=== PATIENT | male | born 2000 | race Caucasian/White ===

== ENCOUNTER 2020-05-02 15:00 | Emergency (ER) | payer OTHER, SELFPAY ==
--- NOTE | ~2020-05-02 | XR_ITS ---
EXAMINATION: XR CHEST CLINICAL INFORMATION: Abdominal pain COMPARISON: None TECHNIQUE: Frontal view of the chest was obtained. FINDINGS: Cardiac silhouette is normal in size. The lungs are well aerated. There is no lobar consolidation. No pleural effusion or pneumothorax. XR/XR chest 1V IMPRESSION: No acute pulmonary pathology.
[2020-05-02 15:04] VITALS: BP 143/95; PULSE 93; RESP 16; TEMP 36.5; O2SAT 99; BMI 27.1
--- NOTE | 2020-05-02 18:44 | ED_ITS ---
HPI - Abdominal Pain General Chief Complaint: Abdominal Pain Stated Complaint: ABD PAIN Time Seen by Provider: 05/02/20 18:34 Source: patient Mode of arrival: ambulatory History of Present Illness HPI narrative: 20-year-old male with no significant past medical history presenting to the emergency department nausea, vomiting, and abdominal pain, since yesterday. He states he has had decreased p.o. intake and feels dehydrated. Took Pepto-Bismol last night. He had 1 episode of black stool this morning. He denies hematemesis. He states the pain is diffuse across his abdomen, not focal to one spot. He denies fevers, chest pain, shortness of breath, urinary symptoms. No prior abdominal surgeries. He denies marijuana use. He was able to tolerate 4 crackers while waiting in the waiting room. He took one pill of his mother's nausea medication which helped with the nausea. Similar symptoms occurred last summer . MD elicited complaint: abdominal pain Related Data Previous Rx's Medication Instructions Recorded ondansetron 4 mg PO Q8H PRN 3 Days #9 tab 05/02/20 Allergies Allergy/AdvReac Type Severity Reaction Status Date / Time cefprozil [From Cefzil] Allergy Unknown Unknown Verified 05/02/20 18:42 Review of Systems Constitutional: Denies fever(s) and Denies headache(s) Eyes: Reports no additional eye complaints Denies headache(s) and Denies sore throat Cardiovascular: Denies chest pain and Denies dyspnea Respiratory: Denies cough and Denies dyspnea Gastrointestinal: Reports abdominal pain, Denies diarrhea, Reports nausea and Reports vomiting Comments: denies dysuria or hematuria Musculoskeletal: Reports no additional musculoskeletal complaints Denies headache(s) Hematologic/Lymphatic: Denies easy bleeding Physical Exam Vital Signs: Vital Signs: Last Vital Signs Temp 98.5 F 05/02/20 20:33 Pulse 77 05/02/20 20:33 Resp 18 05/02/20 20:33 BP 139/85 05/02/20 20:33 Pulse Ox 99 05/02/20 20:33 Body Mass Index 27.1 Const: Other: laying supine in the stretcher, anxious Orientation/consciousness: patient oriented x3 HENMT: Head: Yes normocephalic Eyes: Pupils: Equal, round and reactive pupils present Neck: Neck: Yes full ROM, Yes no meningeal signs, Yes trachea midline and Yes supple Resp: Effort & Inspection: normal respiratory effort and able to speak in complete sentences Auscultation: clear to auscultation bilaterally Cardio: Rate: regular rate Rhythm: regular rhythm GI: Inspection: No distended Palpation (GI): Soft to palpation, Tenderness to palpation present (GI) (mild diffuse ), no guarding and not rigid : Other: deferred no complaints Skin: Other: warm, dry Neuro: General: patient oriented x3 and no meningeal signs Cranial nerves: Yes Equal, round and reactive pupils present Extrem: General: Yes full ROM Course Reevaluation(s) Reevaluation #1: Pt. states his symptoms have improved. He has no appetite to PO trial. He ate 4 crackers while waiting in the waiting room and has been able to drink water here. Results were discussed. If pt. is able to PO challenege will discharge home. Time: 20:11 Reevaluation #2: Attending evaluated the pt. Agrees to defer abdominal CT at this time. Labs unremarkable, lipase is WNL, LFTs are WNL, COVID negative. Time: 20:32 MDM - Abdominal Pain MDM Narrative Medical decision making narrative: A 20-year-old male presenting to the emergency department with abdominal pain, nausea, vomiting, 1 episode of black stool today Final stable, nontoxic appearing, hemodynamically stable We will plan for basic labs to assess for leukocytosis, anemia, renal dysfunction. We will check for electrolyte abnormalities given his vomiting. We will check chest x-ray to rule out free air. Will check LFTs to assess for acute hepatobiliary disease, lipase for acute pancreatitis. I gave him a GI cocktail and IV fluids. Low concern for acute cholecystitis given no focal right upper quadrant tenderness. Low concern for acute appendicitis given no focal right lower quadrant tenderness. Obstruction is less likely given he is no longer vomiting, had a BM this morning, no prior surgeries. GI bleed is less likely given 1 episode of black stools was most likely due to his Pepto-Bismol use., no associated hematemesis. Gastroenteritis is likely given he has been afebrile, not having diarrhea. Renal stone is less likely given pain is not colicky. Hyperemesis cannabis syndrome less likely given he denies use of marijuana. Case discussed with attending Lab Data Result diagrams: 05/02/20 19:25 05/02/20 19:25 Labs: Lab Results 05/02/20 05/02/20 05/02/20 Range/Units 19:25 19:25 19:25 WBC 7.3 (4.8-10.8) X10*3/uL RBC 5.96 H (4.60-5.80) X10*6/uL Hgb 16.3 (14.0-18.0) g/dl Hct 48.8 (42-52) % MCV 81.9 (80-98) fL MCH 27.3 (27.0-33.0) pg MCHC 33.4 (31.0-36.0) g/dl RDW 12.8 (11.0-16.0) % Plt Count 168 (160-400) X10*3/uL MPV 10.8 (9.4-12.4) fL Immature Gran % (Auto) 0.3 (0.0-0.4) % Neut % (Auto) 68.9 (45-73) % Lymph % (Auto) 19.5 L (20-40) % [place] % (Auto) 10.5 (2-11) % Eos % (Auto) 0.7 (0-4) % Baso % (Auto) 0.1 (0-2) % Lymph # (Auto) 1.4 (1.2-4.9) X10*3/uL [place] # (Auto) 0.8 (0.1-1.2) X10*3/uL Eos # (Auto) 0.1 (0.0-0.4) X10*3/uL Baso # (Auto) 0.0 (0.0-0.2) X10*3/uL Abs Immat Gran (auto) 0.02 (0.00-0.03) X10*3/uL Absolute Neuts (auto) 5.0 (2.0-8.3) X10*3/uL Absolute Nucleated RBC 0.000 (0.0-0.012) X10*3/uL Nucleated RBC % (auto) 0.0 (0.0-0.2) /100WBC Sodium 139 (135-145) mmol/L Potassium 3.7 (3.3-5.1) mmol/L Chloride 102 (96-108) mmol/L Carbon Dioxide 28 (22-29) mmol/L Anion Gap 13 (12-20) BUN 11 (9-16) mg/dL Creatinine 1.02 (0.5-1.4) mg/dL Estim Creat Clear Calc 132.0 Estimated GFR > 60 Random Glucose 92 (60-115) mg/dL Calcium 9.1 (8.4-10.2) mg/dL Total Bilirubin 0.8 (0.0-1.0) mg/dL Direct Bilirubin 0.3 (0.0-0.5) mg/dL AST 24 (5-37) U/L ALT 34 (0-40) U/L Alkaline Phosphatase 54 (39-117) U/L Total Protein 7.3 (6.5-8.0) g/dL Albumin 4.4 (3.5-5.0) g/dL Lipase 23 (8-78) U/L COVID-19 ([facility]) Negative (Negative) COVID-19 Clin Com See Note Discharge Plan Discharge Clinical Impression: Vomiting, Abdominal pain Patient Disposition: Home, Self-Care Instructions: Acute Nausea and Vomiting (ED), Abdominal Pain (ED) Additional Instructions: You were seen in the emergency department for abdominal pain, vomiting, 1 episode of black stool. Her labs were unremarkable to include electrolytes, liver enzymes, pancreas enzyme. your COVID swab is negative. Her chest x-ray is normal. Please return to the emergency department if your symptoms worsen, worsening abdominal pain, fevers, ongoing vomiting, black stools, bloody vomit, or any other concerning symptoms. Eat a bland diet until your nausea resolves. Take the nausea medication as prescribed if needed. Drink plenty of fluids to keep yourself hydrated. Prescriptions: New ondansetron 4 mg tablet,disintegrating 4 mg PO Q8H PRN (Reason: nausea and vomiting) 3 Days Qty: 9 RF: 0 Referrals: Elier Rodrigez [Physician] - 1 week (consultation ) [facility] Past Medical History Medical History Asthma HLA B27 (HLA B27 positive) Social History Social History (Updated 05/02/20 @ 18:54 by ABRAHAM Irving) Smoking Status: Never smoker Use of substances other than those prescribed or required for medical reasons: No Advance Directives: No Advance Directives Information Provided: Yes
[2020-05-02] MEDS: ondansetron HCL 4 MG/2 ML VIAL IVPUSH (19:28)
[2020-05-02] MEDS: Famotidine/PF 20 MG/2 ML VIAL IVPUSH (19:28)
[2020-05-02] MEDS: Magnesium Hydrox/Alum Hydrox 30 ML ORAL.SUSP PO (19:28)
[2020-05-02] MEDS: Lidocaine HCl Viscous 2 % 15 ML SOLUTION MUCOUS MEM (19:28)
[2020-05-02] MEDS: 0.9 % Sodium Chloride 1,000 ML 999 ML IV (19:28)
[2020-05-02 19:31] LABS: MANUAL DIFF FLAG NO
[2020-05-02 19:32] LABS: Basophils Percent Auto 0.1 % (0-2); Eosinophils Absolute Auto 0.1 X10*3/uL (0.0-0.4); Eosinophils Percent Auto 0.7 % (0-4); Hematocrit 48.8 % (42-52); Hemoglobin 16.3 g/dl (14.0-18.0); Imm Gran Abs Auto 0.02 X10*3/uL (0.00-0.03); Imm Gran Pct Auto 0.3 % (0.0-0.4); Lymphocytes Absolute Auto 1.4 X10*3/uL (1.2-4.9); Lymphocytes Percent Auto 19.5 % (20-40); Mean Corpuscular HGB Conc 33.4 g/dl (31.0-36.0); Mean Corpuscular Hemoglobin 27.3 pg (27.0-33.0); Mean Corpuscular Volume 81.9 fL (80-98); Mean Platelet Volume 10.8 fL (9.4-12.4); Monocytes Absolute Auto 0.8 X10*3/uL (0.1-1.2); Monocytes Percent Auto 10.5 % (2-11); Neutrophils Percent Auto 68.9 % (45-73); Platelet Count 168 X10*3/uL (160-400); Red Blood Count 5.96 X10*6/uL (4.60-5.80); Red Cell Distribution Width 12.8 % (11.0-16.0); White Blood Count 7.3 X10*3/uL (4.8-10.8)
[2020-05-02 19:49] LABS: COVID-19 Test Negative (Negative); IDNOW Serial# 9DD0AD1C
[2020-05-02 19:55] LABS: Albumin Level 4.4 g/dL (3.5-5.0); Anion Gap 13 (12-20); Aspartate Amino Transferase 24 U/L (5-37); Bilirubin Direct 0.3 mg/dL (0.0-0.5); Bilirubin Total 0.8 mg/dL (0.0-1.0); Blood Urea Nitrogen 11 mg/dL (9-16); Calcium 9.1 mg/dL (8.4-10.2); Carbon Dioxide 28 mmol/L (22-29); Chloride 102 mmol/L (96-108); Estimated Glomerular Filt Rate > 60; Glucose Random 92 mg/dL (60-115); Potassium 3.7 mmol/L (3.3-5.1); Sodium 139 mmol/L (135-145); Total Protein 7.3 g/dL (6.5-8.0)
[2020-05-02 20:09] LABS: Alanine Aminotransferase 34 U/L (0-40); Alkaline Phosphatase 54 U/L (39-117); Lipase 23 U/L (8-78)
[2020-05-02 20:33] VITALS: BP 139/85; PULSE 77; RESP 18; TEMP 36.9; O2SAT 99
== END 2020-05-02 21:00 | disposition home or self-care (01) ==
PROVIDERS: Physician Assistant Medical; Emergency Provider Internal Medicine; PCP Internal Medicine
DX: R10.9 Unspecified abdominal pain (principal); R11.10 Vomiting, unspecified; Z20.822 Contact with and (suspected) exposure to COVID-19; Z79.899 Other long term (current) drug therapy
CPT/HCPCS: 36415; 71045; 80048; 80076; 83690; 85025; 87635; 96365; 96375; 99284; J2405